=== PATIENT | male | born 1990 | race Two or more races ===

== ENCOUNTER 2020-12-25 13:26 | Emergency (ER) | payer BC ==
[~2020-12-25] VITALS: Ht 165.1 cm; Wt 77.1 kg
[2020-12-25 15:12] VITALS: BP 131/85
== END 2020-12-25 15:43 | disposition home or self-care (01) ==
LOC: ER 13:26
DX: S00.01XA Abrasion of scalp, initial encounter (principal); W22.8XXA Striking against or struck by other objects, initial encounter; Y93.89 Activity, other specified; Y92.89 Other specified places as the place of occurrence of the external cause; Y99.8 Other external cause status